=== PATIENT | male | born 1950 | race Caucasian/White ===

== ENCOUNTER 2025-02-16 15:08 | Emergency (ER) | payer MEDICARE, SELFPAY ==
--- NOTE | 2025-02-16 15:00 | RT.EKG_ITS ---
APPROVED REPORT Exam: Resting ECG Reason for Exam: syncope Patient Location: E HR:58 bpm ECG Measurements Heart Rate 58 AXIS FL 181 P 247 QRSd 104 QRS 51 QT 443 T 61 QTc 434 Conclusion Sinus or ectopic atrial bradycardia...P axis (-45,135), rate< 60 No Occlusion NV
--- NOTE | 2025-02-16 15:07 | ED.GENADUL_ITS ---
Discharge Plan Disposition Patient Disposition: Home Discharge Details Clinical Impression: Syncope, Mitral valve prolapse, Hypocalcemia Primary Care Provider: Batsheva,Local ED Provider: Juan Ziegler Home Meds and New Rx's Prescriptions: Continued losartan 25 mg tablet 25 mg PO DAILY amlodipine 5 mg tablet 5 mg PO DAILY Discharge Instructions Additional Instructions: You were seen in the emergency department following your episode of loss of consciousness??syncope. As we discussed your blood work showed no sign of any heart attacks. Your EKG showed no signs of any dangerous heart rhythms. Nonetheless given your risk factors you were offered hospitalization but you declined. If you do not feel comfortable or if you have any recurrent episodes of losing consciousness please return to the emergency department. Otherwise please follow-up with your primary care team when you return home. Thank you for allowing us to participate in your care. Discharge Data Discharge Date/Time-TO BE ENTERED AT DEPARTURE: 02/16/25 17:49 HPI General Date/Time Provider Initiated Documentation: 02/16/25 15:20 . HPI Narrative: MDM This is a quite well-appearing afebrile and not tachycardic 75-year-old male with history of mitral valve prolapse sent syncope for which patient will undergo emergent emergent. No preceding shortness of breath nor chest pain to suggest PE so I did not send a D-dimer. No cough to suggest pneumonia. No chest pain to suggest ACS however I obtain ECG to assess for dysrhythmias. Patient was in a sinus rhythm at a rate of 58. He had normal axis. He had interventricular conduction delay. QTc and IL within normal limits. No ST segment abnormalities. No T wave versions. No prior for comparison. No acute injury pattern. He had had no black or bloody stools to suggest GI bleed. He has high risk based on his age. Will observe on telemetry. His syncope does seem to fit the pattern of prior episodes of syncope given that he was dehydrated at had been drinking alcohol and had edible marijuana. He had no signs of WPW on his ECG. No signs of any blocks. I cannot find an old EKG on the patient and the patient's is not unfortunately able to access 1. He did previously had a first-degree AV block. His repeat echo this taken in surveillance by his food production supervisor showed a normal EF. He had no epsilon wave to suggest arrhythmogenic right ventricular dysplasia. No signs of Brugada nor hypertrophic obstructive cardiomyopathy. I considered CVA however patient is neurologically intact and had no focal neurological deficits so I did not feel the patient required a CT scan of his head. I also considered seizure however patient denied loss of bowel or bladder control and has had no tongue biting emergency postictal so I did not feel he required an EEG. Furthermore he did not strike his head during his fall so my suspicion was exceedingly low for intracranial injury. 3:56 PM Initial reassuring troponin. Base metabolic panel with hypocalcemia calcium of 7.5 for which I provided the patient with oral repletion.. Normal reassuring creatinine. No prior for comparison. Reassuring CK not consistent with rhabdomyolysis. CBC lacks anemia thrombocytopenia and leukocytosis. Ethanol level mildly detectable. 5:20 PM I met with the patient and his . Patient had been having PVCs on the monitor. He had no significant dysrhythmias during his emergency department stay. Nonetheless given his age history of mitral valve prolapse I advised that the safest course of action would be to hospitalize the patient for ongoing telemetry. I also advised that hospitalization alone might not necessarily capture conditions that led to the patient's syncope earlier today. Patient and his requested discharge. I advised that there was some risk in discharge as I could not predict that the patient would not have a dysrhythmia with subsequent syncopal episode or a dangerous arrhythmia. Patient and his understood this risk. They continue to request discharge. His chest x-ray lacked any acute cardiopulmonary process. His repeat troponin returned with no significant delta. I met with the patient and his again. They continue to request discharge. They understood the risk. Patient was discharged with an empiric trial of expectant outpatient management. HPI This is a male with a history of syncopal episodes presenting with another episode of syncope. He is accompanied by his . The patient experienced a syncopal episode on a boat after consuming a few alcoholic beverages, leading to a brief loss of consciousness. This occurred twice when he attempted to stand up. Initially, it was suspected that he might be having a stroke, but his prehospital stroke assessment was reassuring with paramedics. His blood sugar level was recorded at 97, and there were no signs of postictal state or seizure activity. It is believed that he had a syncopal episode. His baseline blood pressure is typically low, and it was initially measured at 90/50. He was administered a liter of fluid, which seemed to reduce the frequency of occasional PVCs he was experiencing. He had a Holter monitor placed for similar events a year ago by [facility], but he did not believe these episodes were cardiac-related. The patient recalls feeling dizzy and fainting after standing up on the boat. He does not remember falling or hitting his head, but his reports that he fell and lost consciousness twice. He has had similar episodes in the past, which were attributed to dehydration. On the day of the incident, he woke up early, had breakfast, drove from [place], and consumed a double shot of Baileys and a beer. He did not experience any chest pain or breathing difficulties before fainting. He has no history of blood clots in his legs or lungs. He is under the care of a food production supervisor for a leaky valve and undergoes an EKG every 6 months. He has worn a monitoring device for a couple of weeks in the past, which did not reveal any significant issues. He has experienced similar episodes about 7 times over the last few years, often when he has not eaten much. He is not a big water drinker, but has been trying to improve his hydration since the last episode. This is the first time such an episode has occurred in the past 1.5 years. He last urinated around noon and is not experiencing any abdominal pain. He felt fine when he woke up this morning. Exam General: Well-appearing in no acute distress speaking in complete sentences. Head: Normocephalic, atraumatic. Eye: Extraocular eye movements intact. No conjunctival injection. No scleral icterus. Ear, nose, mouth, throat: Grossly normal inspection. Normal voice, handling secretions normally. Neck: Trachea midline. Cardiovascular: Well-perfused distal extremities. Regular rate and rhythm. Respiratory: Nonlabored respiration. Clear lungs bilaterally. Gastrointestinal: Nondistended abdomen. Musculoskeletal: No significant lower extremity pitting edema. Moving all 4 extremities spontaneously. Skin: Normal for age and race, grossly normal temperature and turgor. No acute rash. Neurologic: Alert and appropriate, no apparent acute deficits. GCS 15. Cranial nerves II through XII intact grossly. 5 out of 5 bilateral upper and lower extremity strength. Psychiatric: Mood and manner are appropriate. Grooming and personal hygiene are appropriate. Related Data Home Medications ?Medication ?Instructions ?Recorded ?Confirmed amlodipine 5 mg tablet 5 mg PO DAILY 02/16/2502/16 losartan 25 mg tablet 25 mg PO DAILY 02/16/2511/05 Allergies Allergy/AdvReac Type Severity Reaction Status Date / Time No Known Allergies Allergy Unverified 02/16/25 15:14 PFSH All Active Problems (Updated 02/16/25 @ 20:50 by Juan Zieglre MD) Hypocalcemia (Acute) Mitral valve prolapse (Acute) Syncope (Chronic) Social History Smoking risk assessment performed?: No Alcohol Intake: current Alcohol Intake frequency: a few times a week Substance use type: does not use
[2025-02-16 15:09] VITALS: BP 124/54; PULSE 60; RESP 16; TEMP 36.4; O2SAT 96
--- NOTE | 2025-02-16 15:15 | DI.RAD_ITS ---
Exam(s) XR PORTABLE CHEST AP EXAM: XR PORTABLE CHEST AP CLINICAL HISTORY: Syncope. TECHNIQUE: 2D digital imaging was performed. COMPARISON: No exams were available for comparison FINDINGS: Single AP portable view. Heart size is upper normal. The mediastinum is not widened. Lungs are clear. No infiltrates nor obvious pleural effusions. IMPRESSION: No acute pulmonary findings on this single AP portable view of the chest. DATA REPOSITORY: RADIATION DOSE DELIVERED:
[2025-02-16 15:33] LABS: Abs Immature Grans 0.01 10^3/uL (0.0-0.06); HCT 40.8 % (40.0-50.0); HGB 14.2 g/dL (13.5-17.5); Immature Grans % 0.2 %; MCH 33.7 pg (27.0-33.0); MCHC 34.8 % (32.0-36.0); MCV 97 fL (80-95); MPV 10.1 fL (8.0-11.0); Platelet Count 210 10^3/uL (130-400); RBC 4.21 10^6/uL (4.36-5.78); RDW 12.0 % (11.8-14.1); RDW-SD 43.0 fL; WBC 6.37 10^3/uL (4.4-10.8)
[2025-02-16 15:46] LABS: INR 1.1 (0.9-1.1); Prothrombin Time 10.8 sec (9.1-11.1)
[2025-02-16 15:52] LABS: Anion Gap 7.8 mmol/L (3-11); BUN 14 mg/dL (7-18); CO2 25.2 mmol/L (21.0-32.0); Calcium 7.5 mg/dL (8.5-10.1); Chloride 107 mmol/L (98-107); Creatine Kinase 67 U/L (39-308); Estimated GFR 87.96 (mL/min/1.73m2); Glucose 88 mg/dL (74-106); Potassium 3.9 mmol/L (3.5-5.1); Sodium 140 mmol/L (136-145); Troponin I 10 ng/L (<or=76)
[2025-02-16 16:52] LABS: Troponin I 11 ng/L (<or=76)
[2025-02-16 17:31] VITALS: RESP 18
[2025-02-16] MEDS: Calcium Carbonate *TUMS* 500 MG CHEW 1000 MG PO (17:38)
[2025-02-16 17:44] VITALS: BP 165/91; PULSE 61; RESP 16; O2SAT 98
== END 2025-02-16 17:49 | disposition home or self-care (01) ==
PROVIDERS: Emergency Provider Emergency Medicine
DX: R55 Syncope and collapse (principal); E83.51 Hypocalcemia; I34.1 Nonrheumatic mitral (valve) prolapse
CPT/HCPCS: 80048; 82550; 93005; 99285; 71045; 80320; 84484; 85025; 85610; 93010; 99283